=== PATIENT | male | born 1970 | race Two or more races ===

== ENCOUNTER 2020-01-04 21:35 | Emergency (ER) | payer BC, OTHER ==
[~2020-01-04] VITALS: Ht 165.1 cm; Wt 81.6 kg
[~2020-01-04 21:35] MED LIST: ATOR10TA PO; DILT240C88 PO; LISI2.5T2 PO; RIVA10TA PO
--- NOTE | 2020-01-04 21:56 | NUR ---
Dr. Johnson at bedside for MSE
[2020-01-04] MEDS ORDERED: ACETAMINOPHEN ES 500 MG TABLET ONE (22:05)
--- NOTE | 2020-01-04 22:12 | NUR ---
Patient taken to CT scan in stable condition
[2020-01-04] MEDS ORDERED: ACETAMINOPHEN ES 500 MG TABLET PO ONE (22:15)
--- NOTE | 2020-01-04 22:20 | NUR ---
Patient back from CT scan in stable condition
--- NOTE | 2020-01-04 23:18 | NUR ---
Patient discharged to home in stable condition. Written and verbal after care instructions given. Patient verbalizes understanding of instructions. Stressed follow up or return to ER for worsening s/s. Patient ambulating with steady gait
[2020-01-04 23:26] VITALS: BP 142/88
== END 2020-01-04 23:18 | disposition home or self-care (01) ==
LOC: ER 21:35
DX: S09.90XA Unspecified injury of head, initial encounter (principal); V43.52XA Car driver injured in collision with other type car in traffic accident, initial encounter; Y92.410 Unspecified street and highway as the place of occurrence of the external cause; R51 Headache
CPT/HCPCS: 70450; A4663; A9150

== ENCOUNTER 2020-08-04 12:15 | Emergency (ER) | payer BC, OTHER ==
[~2020-08-04] VITALS: Ht 165.1 cm; Wt 81.6 kg
[~2020-08-04 12:15] MED LIST changes: -DILT240C88 PO
[2020-08-04] MEDS ORDERED: IBUPROFEN 800 MG TABLET PO ONE (14:00)
[2020-08-04] MEDS ORDERED: IBUPROFEN 800 MG TABLET ONE (14:23)
--- NOTE | 2020-08-04 14:39 | NUR ---
Patient discharged to home in stable condition. Written and verbal after care instructions given. Patient verbalizes understanding of instructions. Stressed follow up or return to ER for worsening s/s.
--- NOTE | 2020-08-05 21:19 | NUR ---
L/M FOR PT TO CALL. NEEDS TO BE TOLD POSITIVE FOR COVID
== END 2020-08-04 14:41 | disposition home or self-care (01) ==
LOC: ER 12:15
DX: U07.1 COVID-19 (principal); R51.9 Headache, unspecified; M79.10 Myalgia, unspecified site; I48.91 Unspecified atrial fibrillation; Z79.01 Long term (current) use of anticoagulants; I10 Essential (primary) hypertension; Z86.73 Personal history of transient ischemic attack (TIA), and cerebral infarction without residual deficits; J45.909 Unspecified asthma, uncomplicated; Z79.899 Other long term (current) drug therapy
CPT/HCPCS: 99283; U0003; A4663

== ENCOUNTER 2024-04-05 07:01 | Day surgery (SDC) | payer BC, OTHER ==
[~2024-04-05 07:01] MED LIST changes: +ALBU8HFA4; +DILT-3 PO; +LISI-782 PO; +LISI2.5T14 PO; -LISI2.5T2 PO
[2024-04-05] MEDS ORDERED: PROPOFOL 200 MG/20 ML BOTTLE ONE (09:00)
[2024-04-05 11:50] VITALS: TEMP 97
== END 2024-04-05 11:50 | disposition home or self-care (01) ==
LOC: DS 07:01
PROVIDERS: ATTEND Surgery
DX: K62.5 Hemorrhage of anus and rectum (principal); K64.8 Other hemorrhoids; K63.5 Polyp of colon; I10 Essential (primary) hypertension; J45.909 Unspecified asthma, uncomplicated; N40.0 Benign prostatic hyperplasia without lower urinary tract symptoms; E11.9 Type 2 diabetes mellitus without complications; E78.5 Hyperlipidemia, unspecified; Z79.899 Other long term (current) drug therapy; Z98.890 Other specified postprocedural states; Z88.0 Allergy status to penicillin; Z82.49 Family history of ischemic heart disease and other diseases of the circulatory system
CPT/HCPCS: A4663; J3490; J7120

== ENCOUNTER 2025-05-12 11:34 | Emergency (ER) | payer BC, OTHER ==
[~2025-05-12] VITALS: Ht 167.6 cm; Wt 81.6 kg
[2025-05-12 12:32] LABS: PLATELET COUNT (AUTO) 238 K/uL (152-348); RED BLOOD CELL COUNT(AUTO) 4.63 MIL/uL (4.06-5.63); RED CELL DISTRIBUTION WIDTH 13.1 % (12.1-16.2); WHITE BLOOD COUNT (AUTO) 17.3 K/uL (3.6-10.2)
[2025-05-12] MEDS: ALBUTEROL SULFATE 2.5 MG/3 ML NEBU NEB ONE (12:44)
[2025-05-12] MEDS: IPRATROPIUM BROMIDE 0.5 MG/2.5 ML NEBU NEB ONE (12:44)
[2025-05-12 12:45] VITALS: O2SAT 97
[2025-05-12 12:45] LABS: CREATININE 1.1 mg/dL (0.6-1.3); SODIUM SERUM 139.0 mmol/L (136-145); UREA NITROGEN, BLOOD 12.0 mg/dL (7-18)
[2025-05-12] MEDS ORDERED: ALBUTEROL SULFATE 2.5 MG/3 ML NEBU ONE (12:46)
[2025-05-12] MEDS ORDERED: IPRATROPIUM BROMIDE 0.5 MG/2.5 ML NEBU ONE (12:46)
[2025-05-12 12:50] LABS: ASPARTATE AMINOTRANSFERASE 16.0 U/L (15-37); TOTAL PROTEIN, SERUM 7.5 g/dL (6.4-8.2)
[2025-05-12 13:00] VITALS: O2SAT 99
[2025-05-12] MEDS: IV NS 1000 ML 1,000 ML IV PRN (13:46)
[2025-05-12] MEDS ORDERED: LOSA25TA27 PO (13:48)
[2025-05-12] MEDS ORDERED: IBUPROFEN 200 MG TABLET ONE (13:52)
[2025-05-12] MEDS ORDERED: ACETAMINOPHEN 500 MG TABLET ONE (13:52)
[2025-05-12] MEDS: IBUPROFEN 200 MG TABLET PO ONE (13:57)
[2025-05-12] MEDS: ACETAMINOPHEN 500 MG TABLET PO ONE (13:57)
[2025-05-12] MEDS ORDERED: LEVO750T46 PO (14:42)
[2025-05-12 17:00] VITALS: BP 131/88
[2025-05-12 17:47] VITALS: BP 131/88; TEMP 98.5; O2SAT 98
== END 2025-05-12 17:00 | disposition left against medical advice (07) ==
LOC: ER 11:43
DX: J18.9 Pneumonia, unspecified organism (principal); E78.5 Hyperlipidemia, unspecified; I10 Essential (primary) hypertension; N40.0 Benign prostatic hyperplasia without lower urinary tract symptoms; R51.9 Headache, unspecified; Z79.01 Long term (current) use of anticoagulants; Z79.899 Other long term (current) drug therapy; Z86.73 Personal history of transient ischemic attack (TIA), and cerebral infarction without residual deficits; Z87.891 Personal history of nicotine dependence; Z88.0 Allergy status to penicillin; Z88.7 Allergy status to serum and vaccine; Z87.39 Personal history of other diseases of the musculoskeletal system and connective tissue; Z20.822 Contact with and (suspected) exposure to COVID-19
CPT/HCPCS: 99285; 96365; 71045; 96366; 87426; 87804 ×2; 80076; 80048; 85025; 87040; 36415; 94640; 93005; 83605; J1956; J7040; 94760; A4606; A4663; A9150; J3590

== ENCOUNTER 2025-05-29 01:59 | Emergency (ER) | payer BC, OTHER ==
[~2025-05-29] VITALS: Ht 170.2 cm; Wt 81.6 kg
[~2025-05-29 01:59] MED LIST changes: +LEVO750T46 PO; +LOSA25TA27 PO
[2025-05-29] MEDS ORDERED: IPRATROPIUM BROMIDE 0.5 MG/2.5 ML NEBU ONE (02:39)
[2025-05-29] MEDS ORDERED: ALBUTEROL SULFATE 2.5 MG/3 ML NEBU ONE (02:39)
[2025-05-29 02:45] VITALS: O2SAT 99
[2025-05-29] MEDS: IPRATROPIUM BROMIDE 0.5 MG/2.5 ML NEBU NEB ONE (02:47)
[2025-05-29] MEDS: ALBUTEROL SULFATE 2.5 MG/3 ML NEBU NEB ONE (02:47)
[2025-05-29 03:10] LABS: CREATININE 1.0 mg/dL (0.6-1.3); SODIUM SERUM 141 mmol/L (136-145); UREA NITROGEN, BLOOD 15 mg/dL (7-18)
[2025-05-29 03:15] LABS: PLATELET COUNT (AUTO) 474 K/uL (152-348); RED BLOOD CELL COUNT(AUTO) 4.75 MIL/uL (4.06-5.63); RED CELL DISTRIBUTION WIDTH 13.2 % (12.1-16.2); WHITE BLOOD COUNT (AUTO) 10.3 K/uL (3.6-10.2)
[2025-05-29 03:16] LABS: ASPARTATE AMINOTRANSFERASE 18 U/L (15-37); TOTAL PROTEIN, SERUM 7.2 g/dL (6.4-8.2)
[2025-05-29 03:32] VITALS: BP 144/99
[2025-05-29] MEDS ORDERED: ALBU8.5H8 INH (03:54)
[2025-05-29] MEDS ORDERED: PRED50TA PO (03:54)
[2025-05-29 04:00] VITALS: O2SAT 99
[2025-05-29 04:42] VITALS: BP 144/99; O2SAT 99
== END 2025-05-29 04:42 | disposition home or self-care (01) ==
LOC: ER 02:10
DX: J45.901 Unspecified asthma with (acute) exacerbation (principal); I08.1 Rheumatic disorders of both mitral and tricuspid valves; E78.5 Hyperlipidemia, unspecified; N40.0 Benign prostatic hyperplasia without lower urinary tract symptoms; Z79.52 Long term (current) use of systemic steroids; Z79.899 Other long term (current) drug therapy; Z86.73 Personal history of transient ischemic attack (TIA), and cerebral infarction without residual deficits; Z88.0 Allergy status to penicillin; Z88.7 Allergy status to serum and vaccine
CPT/HCPCS: 99285; 96374; 71045; 80076; 80048; 83880; 85025; 85379; 85730; 84484; 36415; 94644; 93005; J2919; A4606; A4663; J3590